=== PATIENT | male | born 1975 | race Hispanic/Latino ===

== ENCOUNTER 2021-05-11 14:18 | Emergency (ER) | payer OTHER ==
[~2021-05-11] VITALS: Ht 168.9 cm; Wt 85.0 kg
[~2021-05-11 14:18] MED LIST: FLEXERIL PO; MOTRIN800 MG/TAB PO
[2021-05-11 14:47] VITALS: BP 128/77
[2021-05-11 15:00] VITALS: BP 118/72
[2021-05-11 15:15] VITALS: BP 123/70
[2021-05-11 15:30] VITALS: BP 116/75
[2021-05-11] MEDS ORDERED: CEPHALEXIN500 M1 PO (15:52)
[2021-05-11] MEDS ORDERED: MOTRIN400 MG/TAB PO (15:53)
[2021-05-11 16:20] VITALS: BP 116/75
== END 2021-05-11 16:20 | disposition home or self-care (01) | DRG 605 ==
LOC: ED 14:18
DX: S60.411A Abrasion of left index finger, initial encounter (principal); S60.413A Abrasion of left middle finger, initial encounter; S60.415A Abrasion of left ring finger, initial encounter; W22.8XXA Striking against or struck by other objects, initial encounter; Y93.89 Activity, other specified; Y92.74 Orchard as the place of occurrence of the external cause; Y99.0 Civilian activity done for income or pay